=== PATIENT | female | born 1955 | race Caucasian/White ===

== ENCOUNTER 2022-10-06 00:27 | Inpatient (IN) | payer MEDICAID, OTHER ==
[~2022-10-06] VITALS: Ht 175.3 cm; Wt 66.0 kg
[2022-10-06 01:28] LABS: Urine Bacteria FEW /hpf (None Seen); Urine Blood 2+ /uL (Negative); Urine Mucus FEW (None Seen); Urine Specific Gravity 1.021 (1.001-1.035); Urine WBC 4 /hpf (0 - 5)
[2022-10-06 01:45] LABS: Basophils # (auto) 0.2 10 ^3/uL (0-0.2); Basophils % (auto) 2.7 % (0.0-2.0); Eosinophils # (auto) 0.3 10 ^3/uL (0-0.8); Hematocrit 45.9 % (36.0-46.0); Hemoglobin 15.8 g/dL (12.2-16.2); Lymphocytes % (auto) 12.1 % (10.0-50.0); Mean Corpuscular Hemoglobin 31.8 pg (28.0-32.0); Mean Corpuscular Hgb Conc. 34.4 g/dL (32.0-36.0); Mean Corpuscular Volume 92.6 fL (80.0-100.0); Monocytes # (auto) 0.5 10 ^3/uL (0-1.3); Monocytes % (auto) 5.7 % (0.0-12.0); Neutrophils # (auto) 6.2 10 ^3/uL (1.6-8.6); Neutrophils % (auto) 75.5 % (37.0-80.0); Red Blood Cells 4.95 10^6/uL (4.0-5.20); Red Cell Distribution Width 13.7 % (11.8-14.3); White Blood Cell 8.2 10^3/uL (4.4-10.8)
[2022-10-06] MEDS ORDERED: cefTRIAXone 1GM/50ML D5W 50 ML IV ONE (02:00)
[2022-10-06 02:14] LABS: Albumin 3.6 g/dL (3.4-5.0); BUN/Creatinine Ratio 29.1 (10.0-20.0); Calcium 9.1 mg/dL (8.5-10.1)
[2022-10-06 02:17] LABS: Bilirubin, Total 0.3 mg/dL (0.2-1.0); Total Protein 7.2 g/dL (6.4-8.2)
[2022-10-06] MEDS ORDERED: fentaNYL CITRATE 100 MCG/2 ML VL IV ONE (02:30)
[2022-10-06] MEDS ORDERED: SODIUM CHLORIDE 0.9% 1,000 ML IV ONE (02:30)
[2022-10-06] MEDS ORDERED: NITROGLYCERIN 0.4 MG SL TAB SL PRN (04:30)
[2022-10-06] MEDS ORDERED: ACETAMINOPHEN 325 MG TAB PO PRN (04:30)
[2022-10-06] MEDS ORDERED: MORPHINE SULFATE INJ 2 MG/ml SYRG IV PRN ×2 (04:30)
[2022-10-06 05:28] LABS: Albumin 3.3 g/dL (3.4-5.0); Calcium 8.5 mg/dL (8.5-10.1); Potassium 3.9 mmol/L (3.5-5.1)
[2022-10-06 05:29] LABS: Basophils # (auto) 0 10 ^3/uL (0-0.2); Basophils % (auto) 0.5 % (0.0-2.0); Eosinophils # (auto) 0 10 ^3/uL (0-0.8); Eosinophils % (auto) 0.5 % (0.0-7.0); Hematocrit 45.1 % (36.0-46.0); Hemoglobin 15.4 g/dL (12.2-16.2); Lymphocytes # (auto) 0.7 10 ^3/uL (0.4-5.4); Lymphocytes % (auto) 10.6 % (10.0-50.0); Mean Corpuscular Hemoglobin 32.1 pg (28.0-32.0); Mean Corpuscular Hgb Conc. 34.2 g/dL (32.0-36.0); Mean Corpuscular Volume 93.8 fL (80.0-100.0); Monocytes # (auto) 0.1 10 ^3/uL (0-1.3); Neutrophils # (auto) 5.9 10 ^3/uL (1.6-8.6); Neutrophils % (auto) 86.4 % (37.0-80.0); Red Blood Cells 4.81 10^6/uL (4.0-5.20); Red Cell Distribution Width 13.9 % (11.8-14.3); White Blood Cell 6.8 10^3/uL (4.4-10.8)
[2022-10-06 05:32] LABS: Bilirubin, Total 0.3 mg/dL (0.2-1.0)
[2022-10-06] MEDS: SOD CHL 0.45% 1,000 ML IV SCH (05:37)
[2022-10-06] MEDS: HYDROcodone-ACET 5/325MG TAB PO PRN ×3 (05:54→18:52)
[2022-10-06] MEDS: ONDANSETRON HCL 4 MG/2 ML VIAL IV PRN ×3 (09:53→18:52)
[2022-10-06 12:45] VITALS: BP 145/84
[2022-10-06 13:31] VITALS: BP 145/84
[2022-10-06 16:00] VITALS: BP 125/69
[2022-10-06 22:00] VITALS: BP 119/47
[2022-10-07] MEDS: HYDROcodone-ACET 5/325MG TAB PO PRN ×3 (00:11→12:42)
[2022-10-07] MEDS: SOD CHL 0.45% 1,000 ML IV SCH ×2 (00:52→19:18)
[2022-10-07 05:00] VITALS: BP 117/75
[2022-10-07 05:53] LABS: Basophils # (auto) 0 10 ^3/uL (0-0.2); Basophils % (auto) 0.9 % (0.0-2.0); Eosinophils # (auto) 0.2 10 ^3/uL (0-0.8); Eosinophils % (auto) 4.4 % (0.0-7.0); Hemoglobin 14.6 g/dL (12.2-16.2); Lymphocytes # (auto) 1.8 10 ^3/uL (0.4-5.4); Lymphocytes % (auto) 41.6 % (10.0-50.0); Mean Corpuscular Hemoglobin 31.3 pg (28.0-32.0); Mean Corpuscular Hgb Conc. 33.9 g/dL (32.0-36.0); Mean Corpuscular Volume 92.5 fL (80.0-100.0); Monocytes # (auto) 0.3 10 ^3/uL (0-1.3); Monocytes % (auto) 7.7 % (0.0-12.0); Neutrophils % (auto) 45.4 % (37.0-80.0); Nucleated Red Blood Cells % 0.2 %; Red Blood Cells 4.65 10^6/uL (4.0-5.20); Red Cell Distribution Width 13.6 % (11.8-14.3); White Blood Cell 4.3 10^3/uL (4.4-10.8)
[2022-10-07 06:15] LABS: Potassium 3.8 mmol/L (3.5-5.1)
[2022-10-07 06:27] LABS: Albumin 3.1 g/dL (3.4-5.0); BUN/Creatinine Ratio 13.8 (10.0-20.0); Bilirubin, Total 0.5 mg/dL (0.2-1.0); Calcium 8.6 mg/dL (8.5-10.1); Total Protein 6.3 g/dL (6.4-8.2)
[2022-10-07] MEDS: ONDANSETRON HCL 4 MG/2 ML VIAL IV PRN ×2 (08:34→12:42)
[2022-10-07] MEDS: cefTRIAXone 1GM/50ML D5W 50 ML IV SCH (08:34)
[2022-10-07 09:01] VITALS: BP 122/73
[2022-10-07] MEDS: DOCUSATE SOD 100 MG CAP PO PRN (12:42)
[2022-10-07 13:00] VITALS: BP 108/73
[2022-10-07 16:56] VITALS: BP 111/69
[2022-10-07 22:00] VITALS: BP 100/61
[2022-10-08] MEDS: HYDROcodone-ACET 5/325MG TAB PO PRN ×4 (00:19→21:01)
[2022-10-08] MEDS: SOD CHL 0.45% 1,000 ML IV SCH ×2 (01:52→21:07)
[2022-10-08 05:00] VITALS: BP 120/77
[2022-10-08 09:00] VITALS: BP 113/73
[2022-10-08] MEDS: cefTRIAXone 1GM/50ML D5W 50 ML IV SCH (10:07)
[2022-10-08] MEDS: DOCUSATE SOD 100 MG CAP PO PRN ×2 (10:12→21:01)
[2022-10-08 13:00] VITALS: BP 125/71
[2022-10-08 16:07] LABS: Hepatitis C Antibody Negative (Negative)
[2022-10-08 17:00] VITALS: BP 114/63
[2022-10-08 22:00] VITALS: BP 121/68
[2022-10-09 05:24] VITALS: BP 122/77
[2022-10-09 08:54] VITALS: BP 113/74
[2022-10-09] MEDS: cefTRIAXone 1GM/50ML D5W 50 ML IV SCH (10:24)
[2022-10-09] MEDS: HYDROcodone-ACET 5/325MG TAB PO PRN (10:25)
[2022-10-09] MEDS ORDERED: LEVO500T31 PO (11:23)
[2022-10-09 13:00] VITALS: BP 126/71
[2022-10-09 14:36] VITALS: BP 113/74
== END 2022-10-09 15:45 | disposition home or self-care (01) | DRG 463 ==
LOC: ER 00:27 → OVERFLOW 04:17 → CENTRAL 13:01
PROVIDERS: ADMIT Nurse Practitioner Family; ATTEND Internal Medicine
DX: N10 Acute pyelonephritis (principal); K59.00 Constipation, unspecified; R32 Unspecified urinary incontinence; Z20.822 Contact with and (suspected) exposure to COVID-19; N32.89 Other specified disorders of bladder; Z87.442 Personal history of urinary calculi; Z98.51 Tubal ligation status
CPT/HCPCS: 36415; 74176; 80053; 81001; 83605; 84484; 85025; 86803; 87086; 87340; 87426; 96361; 96365; 96375; G0378; J0696; J2405